=== PATIENT | female | born 1990 | race Caucasian/White ===

== ENCOUNTER → 2017-12-07 16:08 | Outpatient (CLI) | payer OTHER, SELFPAY ==
[2017-12-07 21:59] LABS: Chlamydia Trachomatis by PCR Negative (Negative); Neisserai gonorrhoeae by PCR Negative (Negative); Probe Check PASS; Sample Adequacy Control PASS; Specimen Processing Control PASS
[2017-12-15 08:28] LABS: HPV HC, High Risk Negative (Negative)
[2017-12-15 08:49] LABS: HPV Reflexed? YES, CHARGE PATIENT
== END ==
PROVIDERS: Visit Provider Obstetrics & Gynecology
DX: Z12.4 Encounter for screening for malignant neoplasm of cervix (principal); Z11.3 Encounter for screening for infections with a predominantly sexual mode of transmission
CPT/HCPCS: 87491; 87591; 87624; 88175; G0145

== ENCOUNTER → 2018-01-07 14:59 | Outpatient (CLI) | payer OTHER, SELFPAY ==
[2018-01-07 15:46] LABS: Color, Urine Yellow (Yellow); Glucose, Dipstick Normal (Normal); Ketone-Dipstick Negative (Negative); Leukocyte Esterase-Dipstick Negative /ul (Negative); Nitrite-Dipstick Negative (Negative); Occult Blood-Urine Negative /ul (Negative); Protein-Dipstick Negative (Negative); Urine Bilirubin Dipstick Negative (Negative); Urine Clarity Clear (Clear); Urine Urobilinogen Normal (Normal)
[2018-01-07 16:02] LABS: Absolute Lymphocyte Count 1.95 X10^3/ul (0.83-4.51); Basophil# 0.03 X10^3/uL; Basophil% 0.2 % (0-1); Eosinophil# 0.17 X10^3/uL; Eosinophils% 1.1 % (0-5); Hematocrit 35.9 % (37-47); Hemoglobin 12.3 g/dl (12.0-15.0); Lymphocyte # 1.95 X10^3/ul (4.0); Mean Corp Hgb Conc 34.3 g/gl (32-36); Mean Corpuscular Hgb 29.6 pg (27.0-32.0); Mean Corpuscular Volume 86.5 fL (81-99); Mean Platelet Vol. 9.7 fl (6.2-12.0); Monocyte# 0.79 X10^3/uL; Monocyte% 5.3 % (0-10); Neutrophil # 11.96 X10^3/uL (2.7-7.7); Platelet Count 288 K/mm3 (150-450); RBC Distribution Width CV 12.8 % (11.6-14.6); RBC Distribution Width SD 39.3 fl (35.1-43.9); Red Blood Count 4.15 M/mm3 (4.2-5.4)
[2018-01-07 16:18] LABS: POSITIVE COUNT NO; POSITIVE DIFFERENTIAL NO; POSITIVE MORPHOLOGY NO
[2018-01-07 16:28] LABS: Thyroid Stim Hormone (TSH) 0.91 uIU/mL (0.358-3.74)
[2018-01-07 17:06] LABS: HIV - WCH Non-Reactive (Nonreactive); Rubella IgG 16.2 IU/mL
[2018-01-09 11:31] LABS: HEPATITIS B SURFACE AG Negative (Negative); Hep C Antibodies <0.1 s/co ratio (0.0-0.9)
[2018-01-11 01:12] LABS: Prenatal RPR NONREACTIVE (NONREACTIVE)
== END ==
PROVIDERS: Visit Provider Obstetrics & Gynecology
DX: Z34.82 Encounter for supervision of other normal pregnancy, second trimester (principal)
CPT/HCPCS: 36415; 81002; 84443; 85025; 86703; 86762; 86803; 87340

== ENCOUNTER → 2018-03-18 10:48 | Outpatient (CLI) | payer OTHER, SELFPAY ==
[2018-03-18 13:56] LABS: Hematocrit 29.5 % (37-47); Hemoglobin 9.7 g/dl (12.0-15.0); Mean Corp Hgb Conc 32.9 g/gl (32-36); Mean Corpuscular Volume 88.3 fL (81-99); Mean Platelet Vol. 9.9 fl (6.2-12.0); Platelet Count 272 K/mm3 (150-450); RBC Distribution Width CV 12.3 % (11.6-14.6); RBC Distribution Width SD 37.9 fl (35.1-43.9); Red Blood Count 3.34 M/mm3 (4.2-5.4); White Blood Count 12.6 K/mm3 (4.4-11.0)
[2018-03-18 14:00] LABS: Glucose Challenge Gest 1H 50g 107 mg/dL (70-140)
[2018-03-18 14:10] LABS: Scan Indicated on CBC? Y/N NO
== END ==
PROVIDERS: Visit Provider Obstetrics & Gynecology
DX: Z34.83 Encounter for supervision of other normal pregnancy, third trimester (principal)
CPT/HCPCS: 36415; 82950; 85027

== ENCOUNTER → 2018-05-08 13:50 | Outpatient (CLI) | payer OTHER, SELFPAY ==
[2018-05-08 15:39] LABS: Group B Strep DNA By PCR Negative (Negative); Internal Control PASS; Probe Check PASS; Specimen Processing Control PASS
== END ==
PROVIDERS: Visit Provider Obstetrics & Gynecology
DX: Z36.85 Encounter for antenatal screening for Streptococcus B (principal)
CPT/HCPCS: 87081; 87653

== ENCOUNTER → 2018-05-31 13:20 | Outpatient (CLI) | payer OTHER, SELFPAY ==
[2018-05-31 13:27] LABS: Mucous, Urine 0 SEEN /hpf (<or=2+)
[2018-05-31 13:47] LABS: Color, Urine Yellow (Yellow); Glucose, Dipstick Normal (Normal); Ketone-Dipstick Negative (Negative); Leukocyte Esterase-Dipstick 500 /ul (Negative); Nitrite-Dipstick Negative (Negative); Occult Blood-Urine 50 /ul (Negative); Protein-Dipstick Negative (Negative); Specific Gravity, Urine 1.005 (1.002-1.030); Urine Bilirubin Dipstick Negative (Negative); Urine Clarity Sl. Cloudy (Clear); Urine Urobilinogen Normal (Normal)
[2018-05-31 13:53] LABS: Bacteria 1+ /hpf (None Seen); Red Blood Cells-Urine 0-5 SEEN /hpf (0-5); Squamous Epithelial Cells - UA 0-5 SEEN /hpf (5-10); White Blood Cells 25-50 SEEN /hpf (0-5)
== END ==
PROVIDERS: Visit Provider Obstetrics & Gynecology
DX: O23.43 Unspecified infection of urinary tract in pregnancy, third trimester (principal); Z3A.00 Weeks of gestation of pregnancy not specified
CPT/HCPCS: 81001; 87086; 87088

== ENCOUNTER 2018-06-05 16:00 | Inpatient (IN) | payer SELFPAY ==
[2018-06-05 16:47] VITALS: BMI 30.9
[2018-06-05 17:09] LABS: Hematocrit 34.1 % (37-47); Hemoglobin 11.5 g/dl (12.0-15.0); Mean Corp Hgb Conc 33.7 g/gl (32-36); Mean Corpuscular Hgb 29.4 pg (27.0-32.0); Mean Corpuscular Volume 87.2 fL (81-99); Mean Platelet Vol. 9.4 fl (6.2-12.0); Platelet Count 255 K/mm3 (150-450); RBC Distribution Width CV 14.4 % (11.6-14.6); RBC Distribution Width SD 45.6 fl (35.1-43.9); Red Blood Count 3.91 M/mm3 (4.2-5.4)
[2018-06-05 17:24] LABS: Scan Indicated on CBC? Y/N NO
[2018-06-05] MEDS: Lactated Ringers 1,000 ML 50 ML IV (19:00)
--- NOTE | 2018-06-05 20:05 | PCM.PN.OB ---
Subjective: Feeling contractions and pressure Objective: Afeb VSS FHR tracing Cat 1 - Physical Exam General: Alert, Oriented x3, Cooperative, No apparent distress Abdomen: Gravid, Appropriate for Gestational Age Extremities: No edema Comment: CE 9.5 cm 100% -1 station Weight: 180 lb Body Mass Index (BMI) 30.9 Laboratory Tests Past 24 Hrs 06/05/18 06/05/18 16:30 16:30 WBC 16.0 H RBC 3.91 L Hgb 11.5 L Hct 34.1 L MCV 87.2 MCH 29.4 MCHC 33.7 RDW 14.4 RDW Differential 45.6 H Plt Count 255 MPV 9.4 Blood Type A POSITIVE Antibody Screen NEGATIVE Medical Necessity - Tobacco Use Smoking Status: Never smoker Assessment/Plan Cervix is very stretchy. With pushing efforts will be able to push past remaining cervix. Will start pushing trial.
[2018-06-05] MEDS: Oxytocin 30 units/NS 500 ml 30 UNITS/500 ML IV.SOLN 334 UNITS IV (20:27)
--- NOTE | 2018-06-05 20:36 | PCM.OB.VAG ---
Vaginal Delivery Maternal Presentation: Active Labor, Spontaneous Rupture of Membranes 39w3d ega with SROM History of prior C/S Amniotic Membrane Rupture Type: Spontaneous at home Rupture of Membrane time: 1400 Amniotic Fluid Description: Clear Final LESA: 06/09/18 Final LESA Source: US <20 weeks Gestational age: 39 Weeks and 3 Days Date of Procedure: 06/05/18 Pre-Operative Diagnosis: Labor Post-Operative Diagnosis: same Surgery/ Procedure Performed: Spontaneous Vaginal Delivery Type of Anesthesia: None Description of Procedure: Progressed to 9.5 cm then pushed for about 30 minutes to deliver a live female with apgars of 8/9. Delayed cord clamping was employed. The mouth was suctioned at delivery. The cord was clamped and cut and baby placed on mom's chest for skin to skin. The placenta delivered spontaneously intact with a gentrally located 3VC. The uterus contracted well. Inspection revealed an intact cervix and upper vagina. A tiny first degree posterior vaginal tear was repaired with one figure of eight of 2-0 Vicryl. Presentation: Vertex Placental Delivery Description: Spontaneous Placenta Disposition: [facility] Percentage of Placenta Abruption: 0 Cord Vessel Description: 3 Vessels Nuchal Cord Compression: Without compression Cord Entanglement: None Estimated Blood Loss: 300cc A gender: Female (1 minute): 8 (5 minute): 9 Episiotomy Description: None Laceration: Midline, Vaginal Extension/lac, 1st degree Medications given after delivery: IV Pitocin Complications: None
--- NOTE | 2018-06-05 20:46 | DCINST_ITS ---
Discharge Diet: No Restrictions Discharge Activity: Return to Normal Activity, May Drive, May Shower Return to work on:: 07/22/18 May resume sexual activity in: 4 weeks Call your doctor if your incision/area has: Sudden Increased Bleeding, Increased Pain/ Swelling, Foul Smelling Discharge Call your doctor if you observe: Fever of 101 or Higher, Inability to urinate, Inability to have a bowel movement, Using more than one pad per hour, Shortness of breath, Chest pain, Calf discomfort, Uncontrolled pain Cleanse incision/area with: Soap & Water Additional Instructions: If you experience any of the following, contact your healthcare provider. * Bleeding that soaks a pad every hour for 2 hours * Fever 100.4 or higher * Unrelieved incision or abdominal pain * Swelling, redness, discharge or bleeding from your incision or episiotomy site * Your incision begins to separate * Problems urinating (including inability to urinate or burning while urinating). * Visual changes * Severe headache * Flu-like symptoms * Pain or redness in one of both of your breasts * Pain, warmth, tenderness or swelling in your legs, especially the calf area * Frequent nausea and vomiting * Symptoms of depression or anxiety If you experience any of the following, call 911 or go to the nearest Emergency Room. * Chest pain * Problems breathing * Seizure activity * Partial or complete paralysis of a body part, slurred speech, weakness or drooping of the face, or a sudden inability to walk or hold your balance Allergies/Adverse Reactions: Allergies shrimp Allergy (Verified 06/05/18 16:57) Itching Medications to take at Discharge Ferrous Sulfate 325 mg PO DAILY@0800 06/05/18 Ibuprofen 600 mg PO 4X/DAY #30 tab 06/05/18 Vits96/Iron Fum/Folic [ Tablet] 1 each PO DAILY 06/05/18 The following prescriptions were given: Ibuprofen 600 mg PO 4X/DAY #30 tab Please Follow Up With: Mamta Beck MD When: 6 weeks Primary Care Physician: Care Physician,No Primary [Primary Care Provider] - Test Results: Test results from this visit will be discussed in further detail at your follow- up appointment, if applicable. Proposed Discharge Date: 06/07/18
[2018-06-05] MEDS: Oxytocin 30 units/NS 500 ml 30 UNITS/500 ML IV.SOLN 167 UNITS IV (20:57)
[2018-06-05 23:33] VITALS: BP 124/72; PULSE 101; RESP 16; TEMP 36.6
[2018-06-06 04:10] VITALS: BP 103/59; PULSE 92; RESP 16; TEMP 36.7
[2018-06-06 06:12] LABS: Mean Corp Hgb Conc 33.3 g/gl (32-36); Mean Corpuscular Hgb 29.2 pg (27.0-32.0); Mean Corpuscular Volume 87.6 fL (81-99); Mean Platelet Vol. 9.2 fl (6.2-12.0); Platelet Count 243 K/mm3 (150-450); RBC Distribution Width CV 14.3 % (11.6-14.6); RBC Distribution Width SD 45.4 fl (35.1-43.9); Red Blood Count 4.11 M/mm3 (4.2-5.4); White Blood Count 19.7 K/mm3 (4.4-11.0)
[2018-06-06 06:26] LABS: Scan Indicated on CBC? Y/N NO
[2018-06-06 07:47] VITALS: BP 110/67; PULSE 81; RESP 16; TEMP 36.8; O2SAT 98
--- NOTE | 2018-06-06 08:42 | PCM.PN.OB ---
Subjective: PPD#1 , vacuum assisted vaginal delivery Doing well. Nursing Baby 9# 5 oz. No concerns, some mild cramping Baby is being monitored for blood sugars , so not sure if will be able to go home today. Would like to go home if able, later in the day. Objective: sitting up in bed, getting ready to nurse - Physical Exam General: Alert, Oriented x3, Cooperative, No apparent distress HEENT: Atraumatic Neck: Supple Abdomen: Soft - Fundus firm NT at just inferior to umbilicus Neurological: Cranial nerves II-XII grossly intact Psych/Mental Status: Normal Affect Vital Signs Temp Pulse Resp BP Pulse Ox 98.2 F 81 16 110/67 98 06/06/18 07:47 06/06/18 07:47 06/06/18 07:47 06/06/18 07:47 06/06/18 07:47 Oxygen Delivery Method Room Air Weight: 81.647 kg Body Mass Index (BMI) 30.9 Intake and Output for Last 24 Hours 06/04/18 06/05/18 06/06/18 23:59 23:59 23:59 Output Total 500 / 500 800 / 800 Balance -500 / -500 -800 / -800 Laboratory Tests Past 24 Hrs 06/05/18 06/05/18 06/06/18 16:30 16:30 06:00 WBC 16.0 H 19.7 H RBC 3.91 L 4.11 L Hgb 11.5 L 12.0 Hct 34.1 L 36.0 L MCV 87.2 87.6 MCH 29.4 29.2 MCHC 33.7 33.3 RDW 14.4 14.3 RDW Differential 45.6 H 45.4 H Plt Count 255 243 MPV 9.4 9.2 Blood Type A POSITIVE Antibody Screen NEGATIVE Medical Necessity - Tobacco Use Smoking Status: Never smoker Assessment/Plan PPD#1 , Vacuum assisted vaginal delivery. Stable pp. Continue care. May consider dischg later today if baby is released. If dischg today: RTO in 6 wk for pp check, prn sooner.
[2018-06-06 10:00] VITALS: BP 128/68; PULSE 93; RESP 16; TEMP 36.9
[2018-06-06] MEDS: Prenatal Vits Tablet 1 TABLET PO (10:10)
[2018-06-06 12:05] VITALS: BP 109/67; PULSE 78; RESP 16; TEMP 36.7
[2018-06-06] MEDS: Ibuprofen 200 MG Tablet PO (12:57)
[2018-06-06 20:15] VITALS: BP 119/72; PULSE 83; RESP 16; TEMP 36.6
[2018-06-07] MEDS: Ibuprofen 200 MG Tablet PO ×2 (00:20→09:05)
[2018-06-07 02:40] VITALS: BP 111/67; PULSE 68; RESP 16; TEMP 36.4; O2SAT 98
--- NOTE | 2018-06-07 07:18 | PCM.PN.OB ---
Subjective: PPD#2 , Vacuum assisted delivery Doing well . Nursing. Pain control adequate. - Physical Exam General: Alert, Oriented x3, Cooperative, No apparent distress HEENT: Atraumatic Neck: Supple Abdomen: Soft - Fundus firm NT at umbilicus Psych/Mental Status: Normal Affect Vital Signs Temp Pulse Resp BP Pulse Ox 97.6 F L 68 16 111/67 98 06/07/18 02:40 06/07/18 02:40 06/07/18 02:40 06/07/18 02:40 06/07/18 02:40 Oxygen Delivery Method Room Air Weight: 81.647 kg Body Mass Index (BMI) 30.9 Intake and Output for Last 24 Hours 06/05/18 06/06/18 06/07/18 23:59 23:59 23:59 Output Total 500 / 500 800 / 800 Balance -500 / -500 -800 / -800 Medical Necessity - Tobacco Use Smoking Status: Never smoker Assessment/Plan PPD#2 , Vacuum assisted vaginal delivery. Stable pp. Dischg later today
[2018-06-07] MEDS: Prenatal Vits Tablet 1 TABLET PO (09:05)
[2018-06-07 09:11] VITALS: BP 122/75; PULSE 75; RESP 18; TEMP 36.8; O2SAT 99
== END 2018-06-07 11:35 | disposition home or self-care (01) | DRG 806 ==
PROVIDERS: Admitting Provider Obstetrics & Gynecology; Referring Provider Obstetrics & Gynecology; Visit Provider Obstetrics & Gynecology
DX: O34.211 Maternal care for low transverse scar from previous cesarean delivery (principal); O71.4 Obstetric high vaginal laceration alone; Z37.0 Single live birth; Z3A.39 39 weeks gestation of pregnancy; O99.013 Anemia complicating pregnancy, third trimester; D64.9 Anemia, unspecified
CPT/HCPCS: 59025; 59050; 85027; 86850; 86900; 99218; J7120; G0378

== ENCOUNTER 2025-01-16 20:43 | Inpatient (IN) | payer SELFPAY, OTHER ==
[2025-01-16] VITALS (10 sets, daily range): BP systolic 123–135; BP diastolic 72–74; PULSE 94–115; RESP 16; TEMP 36.8–37.1; O2SAT 96–97; BMI 34.7
[2025-01-16] MEDS: Lactated Ringers 1,000 ML 50 ML IV (21:15)
[2025-01-16] MEDS: Oxytocin 15 Units/NS 250ml 15 UNITS/250 ML IV.SOLN 2 UNITS IV (21:36)
[2025-01-16 21:38] LABS: Absolute Lymphocyte Count 1.74 X10^3/uL (0.83-4.51); Absolute Neutrophil Count 6.8 X10^3/uL (2.0-7.7); Basophil# 0.04 X10^3/uL; Basophil% 0.4 % (0-1); Eosinophil# 0.05 X10^3/uL; Eosinophils% 0.5 % (0-5); Hematocrit 29.6 % (37-47); Hemoglobin 10.1 g/dL (12.0-15.0); Lymphocyte # 1.74 X10^3/ul (0.83-4.51); Lymphocyte % 18.6 % (19-41); Mean Corp Hgb Conc 34.1 g/dL (32-36); Mean Corpuscular Hgb 28.2 pg (27.0-32.0); Mean Corpuscular Volume 82.7 fL (81-99); Mean Platelet Vol. 9.7 fl (6.2-12.0); Monocyte# 0.67 X10^3/uL; Monocyte% 7.2 % (0-10); NRBC Flagged by Analyzer 0 % (0-5); Neutrophil # 6.79 X10^3/uL (2.7-7.7); Neutrophil % 72.9 % (47-70); Platelet Count 303 K/mm3 (150-450); RBC Distribution Width CV 13.5 % (11.6-14.6); RBC Distribution Width SD 40.9 fl (35.1-43.9); Red Blood Count 3.58 M/mm3 (4.2-5.4); White Blood Count 9.3 K/mm3 (4.4-11.0)
[2025-01-16 22:08] LABS: Syphilis Antibodies Nonreactive (Nonreactive)
[2025-01-16 22:42] LABS: Bedside Glucose 120 mg/dL (74-106)
[2025-01-16 23:58] LABS: Bedside Glucose 90 mg/dL (74-106)
[2025-01-17] VITALS (41 sets, daily range): BP systolic 107–146; BP diastolic 56–78; PULSE 72–97; RESP 16; TEMP 36.6–37.4; O2SAT 96–99
[2025-01-17 01:03] LABS: Bedside Glucose 84 mg/dL (74-106)
[2025-01-17 05:41] LABS: Bedside Glucose 90 mg/dL (74-106)
[2025-01-17] MEDS: Oxytocin 15 Units/NS 250ml 15 UNITS/250 ML IV.SOLN 83 UNITS IV (07:05)
--- NOTE | 2025-01-17 07:10 | OB.VAGDELI_ITS ---
Assessment & Plan (1) Previous delivery affecting : (2) 39 weeks gestation of : (3) History of : (4) Depression: QUALIFIERS: Depression Type: depression Qualified Code(s): F53.0 - depression PLAN: Hx of depression Has taken zoloft Maternal Data Information Final LESA: 01/23/25 Gestational age: 39 Vaginal Delivery Maternal Presentation Maternal Presentation: Medically Indicated Induction Maternal Presentation: GDM on NPH qhs Type of Induction: Pitocin Vaginal Delivery Information Procedure Performed: Spontaneous Vaginal Delivery Surgeon/Practitioner: Petty Noguera Date of Procedure: 01/17/25 Pre-Procedure Diagnosis: TOLAC Post-Procedure Diagnosis: Type of anesthesia: None Estimated Blood Loss: 100 cc Time of Delivery: 06:32 Findings Description of procedure: IOL for GDM A2. Pitocin induction. SROM at 6 cm. Pitocin turned off for tachysystole. Progressed to complete and pushed over an intact peritoneum. Delivered the head followed quickly the shoulders. The cried spontaneously and was placed on the maternal abdomen. The cord was clamped and and cut at 1 minute. The placenta delivered with gentle traction. There were no lacerations. All sponge and needle counts were correct. Presentation: Vertex and KACEY Amniotic Membrane Rupture Type: Spontaneous Amniotic Fluid Description: Clear Placental Delivery Description: Spontaneous Placenta Disposition: [facility] Specimen collected: No Cord Vessel Description: 3 Vessels Cord Entanglement: None A Gender: Female (1 minute): 9 (5 minute): 9 Delayed Cord Clamping: Yes Geothermal Electrical Engineer sales representative meats: No Post Vaginal Deli Medications given after delivery: IV Pitocin Episiotomy Description: None Laceration: None Complication Complications: No
--- NOTE | 2025-01-17 07:10 | PCM.HP.OB ---
HPI - General General Date of Admission: 01/16/25 Date of Service: 01/16/25 Chief Complaint: Induction HPI Narrative ALAN RIVAS, is a 34 F who presents induction of labor with previous hx of C/s and . Hx of GDM on insulin qhs. GBS negative Maternal Data Information Final LESA: 01/23/25 Gestational age: 39 weeks PFSH PFSH Medical History Loss of teeth due to extraction Vaginal after depression Depression Anxiety Gestational diabetes Home Medications ?Medication ?Instructions ?Recorded ?Last Taken ?Type ferrous sulfate 325 mg (65 mg 325 mg PO DAILY@0800 06/05/18 01/15/25 History iron) tablet vits 96-ferrous fumarate 1 ea PO DAILY 06/05/18 06/04/18 History 27 mg iron-folic acid 800 mcg tablet aspirin 81 mg tablet,delayed 81 mg PO DAILY 01/16/25 01/15/25 History release insulin NPH isoph U-100 human 100 6 unit subcut BID see provider 01/16/25 01/15/25 21:00 History unit/mL (3 mL) subcutaneous pen (Humulin N NPH U-100 Insulin KwikPen) pantoprazole 20 mg tablet,delayed 20 mg PO PRN pregancy 01/16/25 01/16/25 History release (Protonix) Allergy/AdvReac Type Severity Reaction Status Date / Time shrimp Allergy Itching Verified 01/16/25 21:38 Surgical History History of tonsillectomy and adenoidectomy Social History Smoking Status: Never smoker History 3 Elective abortions Hx Para 2 Spontaneous abortions Hx # Term Pregnancies Ectopic pregnancies Hx # Pregnancies Multiple births # of living children NST FHR Rate Baby A Variability:: Moderate Accelerations:: 15 x 15 Decelerations:: None NST Reactive:: Yes Uterine Activity:: q 4 ROS Constitutional Constitutional: Denies fatigue, fever(s) or malaise Eyes Eyes: Denies change in vision ENT HEENT: Denies dizziness or headache(s) Cardiovascular Cardiovascular: Denies chest pain, dyspnea or lightheadedness Respiratory/Chest Respiratory/Chest: Denies cough or dyspnea Gastrointestinal Gastrointestinal: Denies change in bowel habits Genitourinary Genitourinary: Denies burning urination or genital lesions Integumentary Integumentary: Denies rash Neurologic Neurologic: Denies confusion, dizziness, headache(s), numbness or weakness Vital Signs Vital Signs Vital Signs: 01/16/25 20:54 01/16/25 20:54 01/16/25 20:54 Temperature 98.2 F Temperature Source Pulse Rate 100 Respiratory Rate Blood Pressure 135/74 H BP Systolic 135 BP Diastolic 74 Pulse Ox 01/16/25 20:55 01/16/25 20:55 01/16/25 20:55 Temperature 98.4 F Temperature Source Temporal Pulse Rate Respiratory Rate 16 Blood Pressure BP Systolic BP Diastolic Pulse Ox 01/16/25 20:56 01/16/25 20:56 01/16/25 21:01 Temperature Temperature Source Pulse Rate 115 H 101 H Respiratory Rate Blood Pressure BP Systolic BP Diastolic Pulse Ox 97 01/16/25 21:01 01/16/25 21:06 01/16/25 21:06 Temperature Temperature Source Pulse Rate 107 H Respiratory Rate Blood Pressure BP Systolic BP Diastolic Pulse Ox 97 97 01/16/25 21:11 01/16/25 21:11 01/16/25 21:16 Temperature Temperature Source Pulse Rate 103 H 102 H Respiratory Rate Blood Pressure BP Systolic BP Diastolic Pulse Ox 96 01/16/25 21:16 01/16/25 22:18 01/16/25 22:18 Temperature 98.8 F Temperature Source Temporal Pulse Rate Respiratory Rate Blood Pressure BP Systolic BP Diastolic Pulse Ox 97 01/16/25 22:18 01/16/25 22:18 01/16/25 22:18 Temperature Temperature Source Pulse Rate 94 Respiratory Rate 16 Blood Pressure 123/73 H BP Systolic 123 BP Diastolic 73 Pulse Ox 01/16/25 22:18 01/16/25 23:20 01/16/25 23:20 Temperature 98.8 F Temperature Source Pulse Rate 99 Respiratory Rate Blood Pressure 124/72 H BP Systolic 124 BP Diastolic 72 Pulse Ox 01/16/25 23:22 01/17/25 00:23 01/17/25 00:23 Temperature 98.8 F Temperature Source Pulse Rate 86 Respiratory Rate Blood Pressure 126/69 H BP Systolic 126 BP Diastolic 69 Pulse Ox 01/17/25 00:23 01/17/25 01:38 01/17/25 01:38 Temperature 99.3 F H 99.1 F Temperature Source Pulse Rate Respiratory Rate Blood Pressure 124/61 H BP Systolic 124 BP Diastolic 61 Pulse Ox 01/17/25 01:38 01/17/25 02:43 01/17/25 02:43 Temperature Temperature Source Pulse Rate 92 85 Respiratory Rate Blood Pressure 116/77 BP Systolic 116 BP Diastolic 77 Pulse Ox 01/17/25 02:44 01/17/25 03:50 01/17/25 03:50 Temperature 98.1 F Temperature Source Pulse Rate 81 Respiratory Rate Blood Pressure 130/71 H BP Systolic 130 BP Diastolic 71 Pulse Ox 01/17/25 03:50 01/17/25 05:10 01/17/25 05:10 Temperature 97.9 F Temperature Source Pulse Rate 97 Respiratory Rate Blood Pressure 111/69 BP Systolic 111 BP Diastolic 69 Pulse Ox 01/17/25 05:10 01/17/25 06:44 01/17/25 06:44 Temperature 98.4 F Temperature Source Pulse Rate 94 Respiratory Rate Blood Pressure 131/73 H BP Systolic 131 BP Diastolic 73 Pulse Ox 01/17/25 06:44 01/17/25 06:44 01/17/25 06:45 Temperature Temperature Source Pulse Rate 97 Respiratory Rate Blood Pressure 134/77 H BP Systolic 134 BP Diastolic 77 Pulse Ox 99 01/17/25 06:45 01/17/25 06:45 01/17/25 06:49 Temperature 99.3 F H Temperature Source Pulse Rate 96 90 Respiratory Rate Blood Pressure BP Systolic BP Diastolic Pulse Ox 01/17/25 06:49 01/17/25 06:52 01/17/25 06:52 Temperature Temperature Source Pulse Rate 90 Respiratory Rate Blood Pressure 118/57 L BP Systolic 118 BP Diastolic 57 Pulse Ox 99 01/17/25 06:54 01/17/25 06:54 01/17/25 06:59 Temperature Temperature Source Pulse Rate 87 88 Respiratory Rate Blood Pressure BP Systolic BP Diastolic Pulse Ox 99 01/17/25 06:59 01/17/25 07:03 01/17/25 07:03 Temperature Temperature Source Pulse Rate 84 Respiratory Rate Blood Pressure 122/56 H BP Systolic 122 BP Diastolic 56 Pulse Ox 97 01/17/25 07:04 01/17/25 07:04 01/17/25 07:08 Temperature Temperature Source Pulse Rate 87 Respiratory Rate Blood Pressure 131/67 H BP Systolic 131 BP Diastolic 67 Pulse Ox 97 01/17/25 07:08 Temperature Temperature Source Pulse Rate 80 Respiratory Rate Blood Pressure BP Systolic BP Diastolic Pulse Ox Weight Weight: 94.517 kg Body Mass Index (BMI) 34.7 Physical Exam Const alert and no apparent distress General Appearance: cooperative HEENT normocephalic Resp normal respiratory effort Cardio regular rate GI soft to palpation GI Narrative: gravid, nontender, appropriate for gestational age Extremity no calf tenderness General Extremity: edema Skin no wounds Rashes: No rashes noted Psych activity/motor behavior normal Labs Labs Labs: Blood Type A POSITIVE Antibody Screen NEGATIVE Hct 29.6 % (37-47) L Hgb 10.1 g/dL (12.0-15.0) L Syphilis Total Ab Nonreactive (Nonreactive) Rubella IgG Antibody 16.2 IU/mL Hep Bs Antigen Negative (Negative) Hepatitis C Ab (EIA) <0.1 s/co ratio (0.0-0.9) HIV 1&2 Antibody Non-Reactive (Nonreactive) Glucose 1 Hr 50 gm 107 mg/dL (70-140) Group B Strep DNA Negative (Negative) Rhogam given: No Assessment & Plan (1) History of : (2) Depression: QUALIFIERS: Depression Type: depression Qualified Code(s): F53.0 - depression (3) 39 weeks gestation of : (4) Previous delivery affecting : PLAN: Plan Pitocin IOL No epidural desired GBS negative
[2025-01-17 07:53] LABS: Bedside Glucose 108 mg/dL (74-106)
[2025-01-17] MEDS: Ibuprofen 200 MG Tablet PO ×2 (09:47→19:54)
--- NOTE | 2025-01-17 14:45 | CASEMGMT ---
Social Work: emery wheel worker unable to complete assessment as there were numerous family members and children visiting with patient. emery wheel worker will try and assess at a later time. (01/17/25 at 14:46) Petty Briones, SCOURING PADS SUPERVISOR, DETECTIVE LIEUTENANT
[2025-01-18] VITALS: BP 112/71; PULSE 76; RESP 18; TEMP 36.6; O2SAT 96
[2025-01-18 04:00] VITALS: BP 103/59; PULSE 75; RESP 18; TEMP 36.4; O2SAT 98
[2025-01-18 07:09] LABS: Bedside Glucose 82 mg/dL (74-106)
--- NOTE | 2025-01-18 07:31 | PCM.PN.OB ---
Subjective Subjective Doing well. Ambulating and voiding without difficulty. Mild lochia. Breast feeding. Objective Data Objective Data Vital Signs: Vital Signs Temp Pulse Resp BP Pulse Ox O2 Del Method 97.5 F L 75 18 103/59 L 98 Room Air 01/18/25 04:00 01/18/25 04:00 01/18/25 04:00 01/18/25 04:00 01/18/25 04:00 01/18/25 04:00 Oxygen Delivery Method Room Air Weight: 94.517 kg Body Mass Index (BMI) 34.7 Intake & Output: Intake and Output for Last 24 Hours 01/16/25 01/17/25 01/18/25 23:59 23:59 23:59 Intake Total 125.23 / 125.23 1275.90 / 1275.90 Output Total 100 / 100 Balance 125.23 / 125.23 1175.90 / 1175.90 Lab / Micro Data 01/16/25 21:15 Labs: Laboratory Results - last 24 hr 01/17/25 07:16: POC Glucose 108 H 01/18/25 06:51: POC Glucose 82 ROS Constitutional Constitutional: Denies headache(s) Cardiovascular Cardiovascular: Denies chest pain or dyspnea Gastrointestinal Gastrointestinal: Denies nausea or vomiting Genitourinary Genitourinary: Denies dysuria Physical Exam Const alert, oriented x3 and no apparent distress General Appearance: cooperative and comfortable Eyes PERRL and EOMs intact bilaterally Resp normal respiratory effort GI soft to palpation and non-tender Uterus Palpation: uterus fundus firm ( below umbilicus) Extremity normal to inspection and full ROM Neuro oriented x3 and CN's II-XII intact bilaterally Psych mental status grossly normal Assessment & Plan (1) Vaginal after : PLAN: Plan Discharge home
--- NOTE | 2025-01-18 07:32 | PCM.DC.SUM ---
Providers Date of Admission: 01/16/25 Date of Discharge: 01/18/25 Primary Care Physician: Dr. Sriram Bartlett MD Reason For Visit: VAGINAL DELIVERY Diagnosis Discharge Diagnosis (1) Vaginal after : Status: Acute Code(s): O34.219 - Maternal care for unspecified type scar from previous delivery Plan Discharge home Medications at Discharge Home Medications ferrous sulfate 325 mg (65 mg iron) tablet 325 mg PO DAILY@0800 06/05/18 vits 96-ferrous fumarate 27 mg iron-folic acid 800 mcg tablet 1 ea PO DAILY 06/05/18 pantoprazole 20 mg tablet,delayed release (Protonix) 20 mg PO PRN pregancy 01/16/25 Hospital Course Operations None Procedures None Summary of Care Provided Minutes Spent on Discharge: 20 Hospital Course: Induction of labor for GDM. Uncomplicated delivery. Breast feeding. Physical Exam Const alert, oriented x3 and no apparent distress General Appearance: cooperative and comfortable Eyes PERRL and EOMs intact bilaterally Resp normal respiratory effort GI soft to palpation and non-tender Uterus Palpation: uterus fundus firm ( below umbilicus) Extremity normal to inspection and full ROM Neuro oriented x3 and CN's II-XII intact bilaterally Psych mental status grossly normal Weight / BMI Weight Weight: 94.517 kg Body Mass Index (BMI) 34.7 ABG / Lab / Microbiology Data 01/16/25 21:15 Laboratory: Laboratory Results - last 24 hr 01/17/25 07:16: POC Glucose 108 H 01/18/25 06:51: POC Glucose 82 D/C Instructions Discharge Diet: No restrictions DC O2, CPAP, BIPAP Needs Home O2 Discharge instructions: No Meaningful Use Info Meaningful Use Meaningful Use Diagnoses (Choose all that apply): None applicable Ischemic Stroke Statin Dosing Therapy Reference: STATIN DOSE THERAPY REFERENCE: * Patients > 75 years receive moderate or high dose statin therapy. * Patients 75 years or YOUNGER should receive HIGH intensity statin dose unless contraindicated. You will be required to document reason for non-treatment if statin daily dose does not meet guidelines. HIGH DOSE STATIN THERAPY DAILY Atorvastatin > than or = to 40 mg Rosuvastatin > than or = to 20 mg Amlodipine + Atorvastatin > than or = to 2.5/40 mg Ezetimibe + Simvastatin 10/80 mg Simvastatin 80mg Discharge Plan Admission Admit Date/Time: 01/16/25 20:43 Primary Reason for Your Visit: labor Attending Provider: Petty Noguera Primary Care Provider: Sriram Bartlett Discharge Orders/Prescriptions Prescriptions: Continued [id number] fum-folic 1 EACH tablet 1 ea PO DAILY ferrous sulfate 325 MG tablet 325 mg PO DAILY@0800 pantoprazole [Protonix] 20 mg tablet,delayed release (DR/EC) 20 mg PO PRN Discontinued aspirin 81 mg tablet,delayed release (DR/EC) 81 mg PO DAILY Humulin N NPH Insulin KwikPen 100 unit/mL (3 mL) insulin pen 6 unit subcut BID Referrals / Follow Up: Sriram Bartlett MD [Primary Care Provider] - Disposition Disposition (needs filled in before D/C Order can be placed): Home, Self Care
[2025-01-18 08:06] VITALS: BP 112/76; PULSE 61; RESP 16; TEMP 36.8; O2SAT 98
--- NOTE | 2025-01-18 10:00 | CASEMGMT ---
Social Work: coffee plantation worker unable to complete assessment; family has already been discharged. coffee plantation worker was advised that family left a 09:00. Machine Setter Automatic will attempt to follow up by phone. Petty Briones, DISTILLATION OPERATOR, HEALTH CARE TECHNICIAN
--- NOTE | 2025-01-18 16:05 | CASEMGMT ---
Social Work Assessment Labor and Delivery Unit Patient Address: [address] [place] [address] [address], [place] [address] Phone number: [phone] Date of Referral: 01/17/25 Time of Referral: 07:41 Referred By: Petty Noguera Date of Intervention: ?01/18/25 Time of Intervention: 16:04 via telephonic assessment with the mother of baby (MOB) Reason for Referral: Mental Health/PPD with previous pregnancies and previously medicated with Zoloft. History obtained from: Medical records and MOB. Household composition: MOB, DAVIDA, (Sebastian, age 37), their 2 daughters, Marizol, age 10, Luke, age 6 and daughter Nathalia, born 01/17/25. Patient's parent/guardian status:? MOB and FOB have been together for 17 years and for 13 years. MOB described a positive relationship with the FOB and denied any previous or current concerns of DV. Medical History: : 3, Para, now 3. MOB received care through [facility] beginning at 9 weeks and 5 days.? Visits were observed to be routine. Apgars: 8 and 9. Weight: 8lbs and 9oz. Mold Sheet Cleaner: Will be established through [facility]. Educational Status: MOB denied any issues or concerns with reading or writing either with herself or the FOB. MOB and FOB both completed school through the 8th grade. Financial Status: MOB reported the household income is sufficient to meet the needs of her family at this time. 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 Supplies: MOB reported she has all of the supplies she needs for baby at this time including but not limited to: car seat, crib, meom-of-gont, diapers, breast pump and clothing. Childcare/Caregiver(s): MIB identified herself as the primary caregiver as a SAHM. Transportation:? MOB verified she has transportation to get to and from all medical appointments and denied any transportation barriers. Programs/Agencies Involved: MOB denied any current programs or agencies involved at this time. ??? Children Services/Legal Issues:? Denied. Behavioral Health Issues: ??Mental Health History: MOB has a history of PPD with her two previous pregnancies. PPD was treated with Zoloft.? MOB reported she currently feels good and denied any current depressive symptoms.? MOB reported she will go back on medication as she previously did should she begin to experience symptoms.? MOB reported her previous PPD was ?moderate? and was able to be successfully managed. ??MOB denied any mental health issues with the FOB. ?Substance Use History:? MOB denied any previous or current drug or alcohol abuse issues with either herself or the FOB. ?Family History: MOB reported 2 of her brothers have anxiety and depression.? MOB denied any other family history of mental health on her side of the family or the FOB?s side and also denied any family history on either side involving drug or alcohol abuse. ?Drug Screens: None obtained for MOB or baby during this admission. ?Family Advocate administered the [place] Depression Scale (EPDS). MOB?s score was 4. stove bottom worker provided education to the MOB about the score as well as what to look out for in the near future if administered by another provider which the MOB verbalized she understood. Family/Social Stressors:? Denied Support Systems: Ample. MOB described her biggest support as the FOB, her parents, grandparents, brothers and sisters.? ?MOB and FOB also have support through their restorationism. Depression/Shaken Baby/Safe Sleeping: stove bottom worker provided verbal and written education on PPD, Safe Sleeping and Shaken Baby.? Family Advocate reviewed risk factors with the MOB and MOB verbalized an understanding. ??? ASSESSMENT:? MOB provided consent to social work visit via phone call. MOB was verbally engaged, stated she is doing good and denied any current issues/stressors/concerns.? stove bottom worker asked MOB if there have ever been any concerns with domestic violence, unmanaged mental health concerns or drug or alcohol abuse with either herself or the FOB and MOB replied ?no?. Safe Plan of Care for related to substance use: N/A; not needed. ? PLAN:? Baby has already been discharged home.? stove bottom worker is mailing written information on depression, depression resources and Help Me Grow. ?No other services requested or indicated. Petty Briones, DOG RACES MANAGER, SOLUTION MANAGER
== END 2025-01-18 09:00 | disposition home or self-care (01) | DRG 807 ==
PROVIDERS: Admitting Provider Obstetrics & Gynecology; PCP Family Medicine; Referring Provider Obstetrics & Gynecology; Visit Provider Obstetrics & Gynecology
DX: O24.424 Gestational diabetes mellitus in childbirth, insulin controlled (principal); Z37.0 Single live birth; O34.219 Maternal care for unspecified type scar from previous cesarean delivery; Z79.82 Long term (current) use of aspirin; Z3A.39 39 weeks gestation of pregnancy; Z86.59 Personal history of other mental and behavioral disorders
CPT/HCPCS: 59025; 59050; 82962; 85025; 86780; 86850; 86900; 86901; 99221; G0378